=== PATIENT | female | born 1995 | race Asian ===

== ENCOUNTER 2024-06-01 18:23 | Inpatient (IN) | payer OTHER ==
[2024-06-01] MEDS ORDERED: ELECTROLYTE-148 SOLN 1,000 ML IV SCH (19:45)
[2024-06-01] MEDS: LACTATED RINGERS SOLUTION 1,000 ML IV SCH (21:00)
[2024-06-01 21:36] VITALS: BMI 27.3
[2024-06-01 21:37] LABS: BASO % 0.2 % (0-2.0); EOS % 2.4 % (0-4.5); HEMATOCRIT 36.2 % (32.4-45.2); HEMOGLOBIN 11.5 GM/dL (10.7-15.3); LYMPH % 13.9 % (8-40); MCH 26.1 pg (25.7-33.7); MCHC 31.7 g/dl (32.0-36.0); MEAN CELL VOLUME 82.1 fl (80-96); MEAN PLT VOLUME 8.7 fl (7.5-11.1); MONO % 5.5 % (3.8-10.2); PLATELET COUNT 238 10^3/uL (134-434); RBC 4.41 M/mm3 (3.60-5.2); RDW 15.7 % (11.6-15.6); WHITE BLOOD COUNT 12.1 K/mm3 (4.0-10.0)
[2024-06-01 21:47] LABS: INR 0.96 (0.83-1.09)
[2024-06-01 21:50] LABS: ACTIVATED PTT 25.9 SECONDS (25.2-36.5)
[2024-06-01] MEDS ORDERED: NALOXONE HCL 0.4 MG/ML VIAL IVPUSH PRN (21:55)
[2024-06-01] MEDS ORDERED: FENTANYL/BUPIVACAINE/NS/PF - PCEA - 50 ML DISP.SYRIN EP ONE (21:57)
[2024-06-01 21:58] LABS: POTASSIUM 4.2 mmol/L (3.5-5.1)
[2024-06-01 21:59] LABS: CALCIUM 9.6 mg/dL (8.5-10.1)
[2024-06-01 22:00] LABS: BLOOD UREA NITROGEN 7.4 mg/dL (7-18)
[2024-06-01] MEDS ORDERED: BUPIVACAINE HCL/PF 0.25% (2.5MG/ML) 10 ML VIAL ONE (22:00)
[2024-06-01 22:03] LABS: CREATININE 0.5 mg/dL (0.55-1.3)
[2024-06-01] MEDS: FENTANYL/BUPIVACAINE/NS/PF - PCEA - 50 ML DISP.SYRIN EP SCH (22:20)
[2024-06-01 22:55] LABS: HIV INTERPRETATION NEGATIVE (NEGATIVE)
[2024-06-01] MEDS: AMPICILLIN - 2 GM in SODIUM CHLORIDE 100 ML IVPB ONE (23:12)
[2024-06-01] MEDS ORDERED: OXYTOCIN 20 UNITS in 0.9% NS 20 UNIT/1,000 ML INFUS.BAG IV ONE (23:45)
[2024-06-01] MEDS ORDERED: LIDOCAINE HCL 1% PRESERVATIVE FREE - 30ML VIAL ONE (23:50)
[2024-06-02] MEDS ORDERED: AMPICILLIN - 1 GM in SODIUM CHLORIDE 100 ML IVPB SCH
[2024-06-02 00:02] LABS: URINE AMPHETAMINES NEGATIVE (NEGATIVE); URINE BARBITURATES NEGATIVE (NEGATIVE)
[2024-06-02 00:03] LABS: COCAINE, UR NEGATIVE (NEGATIVE); METHADONE, UR NEGATIVE (NEGATIVE); OPIATES, URI NEGATIVE (NEGATIVE); URINE BENZODIAZEPINES NEGATIVE (NEGATIVE)
[2024-06-02 00:07] LABS: PHENCYCLIDINE,URINE NEGATIVE (NEGATIVE)
[2024-06-02] MEDS: OXYTOCIN 20 UNITS in 0.9% NS 20 UNIT/1,000 ML INFUS.BAG IV SCH (03:07)
[2024-06-02] MEDS ORDERED: IBUPROFEN 600 MG TABLET (FP) PO ONE (03:20)
[2024-06-02] MEDS: IBUPROFEN 600 MG TABLET (FP) PO PRN (03:20)
[2024-06-02] MEDS ORDERED: oxyCODONE HCL 5 MG TABLET PO PRN (03:34)
[2024-06-02] MEDS ORDERED: METHYLERGONOVINE MALEATE 0.2 MG/1 ML AMP IM PRN (03:34)
[2024-06-02] MEDS ORDERED: WITCH HAZEL 50% (TUCKS) 40 PAD/JAR PAD TP PRN (03:34)
[2024-06-02] MEDS ORDERED: BENZOCAINE 28 GM HEMORRHOIDAL OINTMENT TP PRN (03:34)
[2024-06-02] MEDS ORDERED: ACETAMINOPHEN 325 MG TABLET (FP) PO PRN (03:34)
[2024-06-02] MEDS ORDERED: BENZOCAINE 20% 57 GM BOTTLE TP PRN (03:34)
[2024-06-02] MEDS ORDERED: BISACODYL 10 MG SUPP.RECT RC PRN (03:34)
[2024-06-02] MEDS: FERROUS SO4 325 MG TABLET (FP) PO SCH (09:15)
[2024-06-02] MEDS: PRENATAL VITAMINS W/ FOLIC ACID TABLET (FP) PO SCH (09:15)
[2024-06-03 08:13] LABS: BASO % 0.4 % (0-2.0); EOS % 3.5 % (0-4.5); HEMOGLOBIN 9.3 GM/dL (10.7-15.3); LYMPH % 14.6 % (8-40); MCH 26.2 pg (25.7-33.7); MCHC 32.1 g/dl (32.0-36.0); MEAN CELL VOLUME 81.4 fl (80-96); MEAN PLT VOLUME 7.9 fl (7.5-11.1); MONO % 6.1 % (3.8-10.2); NEUT % 75.4 % (42.8-82.8); PLATELET COUNT 194 10^3/uL (134-434); RBC 3.57 M/mm3 (3.60-5.2); RDW 16.2 % (11.6-15.6); WHITE BLOOD COUNT 10.8 K/mm3 (4.0-10.0)
[2024-06-03] MEDS: SENNOSIDES/DOCUSATE COMBO (SENNA PLUS) TABLET (UD) PO PRN (19:15)
[2024-06-04 08:31] VITALS: BP 110/67; PULSE 92; RESP 16; TEMP 97.8
== END 2024-06-04 14:50 | disposition home or self-care (01) | DRG 560 ==
LOC: JDEL 18:23 → JLDR 19:17 → J3W 06-02 05:49
PROVIDERS: ADMIT Obstetrics & Gynecology; ATTEND Obstetrics & Gynecology
PROC: 10D07Z6 Extraction of Products of Conception, Vacuum, Via Natural or Artificial Opening (ICD-10-PCS; principal; 2024-06-02)
PROC: 0W8NXZZ Division of Female Perineum, External Approach (ICD-10-PCS; 2024-06-02)
DX: O75.81 Maternal exhaustion complicating labor and delivery (principal); Z3A.38 38 weeks gestation of pregnancy; Z37.0 Single live birth
CPT/HCPCS: 36415; 59409; 80048; 80307; 85025; 85610; 85730; 86780; 86803; 86850; 86900; 86901; 87389